=== PATIENT | female | born 1975 | race Caucasian/White ===

== ENCOUNTER 2019-01-24 22:44 | Emergency (ER) | payer MEDICAID, OTHER ==
[~2019-01-24] VITALS: Ht 157.5 cm; Wt 75.0 kg
[~2019-01-24 22:44] MED LIST: LEVO-86 PO; NAPR-985 PO; [UNRECOGNIZED DRUG - CODE] IV
[2019-01-24 22:51] VITALS: Ht 157.5 cm; Wt 75.0 kg
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
[2019-01-25 02:16] VITALS: BP 148/83; PULSE 53; RESP 18
== END 2019-01-25 02:17 | disposition home or self-care (01) ==
LOC: FTE 22:44
DX: R07.89 Other chest pain (principal)
CPT/HCPCS: 71045; Z7502